=== PATIENT | male | born 1965 | race African-American/Black ===

== ENCOUNTER 2017-02-09 22:52 | Emergency (ER) | payer MEDICAID ==
[~2017-02-09] VITALS: Ht 175.3 cm; Wt 63.5 kg
[2017-02-09] MEDS ORDERED: BENAZEPRIL HCL20 MG ORAL (23:04)
[2017-02-09] MEDS ORDERED: FERROUS SULFAT325 MG ORAL (23:04)
[2017-02-09] MEDS ORDERED: AMLODIPINE BESYL5 MG ORAL (23:04)
[2017-02-09] MEDS ORDERED: ALBUTEROL2.5 MG/3 M INH (23:04)
[2017-02-09] MEDS ORDERED: ATENOLOL25 MG ORAL (23:04)
[2017-02-09] MEDS ORDERED: ASPIRIN81 MG ORAL (23:04)
[2017-02-09] MEDS ORDERED: Mylanta II UD 30ml ORAL ONE (23:15)
[2017-02-09] MEDS ORDERED: Lidocaine 2% Visc 15ml soln ORAL ONE (23:15)
[2017-02-09 23:25] VITALS: BP 147/73
[2017-02-10 00:24] LABS: APPEARANCE,URINE CLEAR; KETONES,URINE NEGATIVE (NEGATIVE); LEUKOCYTE ESTERASE ,URINE NEGATIVE (NEGATIVE); NITRITE,URINE NEGATIVE (NEGATIVE); PH,URINE 7 (4.5-8.0); PROTEIN,URINE NEGATIVE (NEGATIVE); UROBILINOGEN,URINE NORMAL MG/DL (0.0-1.0)
[2017-02-10 01:00] VITALS: BP 123/71
[2017-02-10 01:03] LABS: BASOPHILS % (AUTO) 1.6 % (0.0-2.0); EOSINOPHILS % (AUTO) 1.9 % (0.0-3.0); MEAN CORPUSCULAR HGB CONC 31.1 G/DL (32.0-36.0); MEAN CORPUSCULAR VOLUME 87 FL (80-99); MEAN PLATELET VOLUME 6.3 FL (6.5-10.1); MONOCYTES % (AUTO) 10.4 % (1.0-10.0); NEUTROPHILS % (AUTO) 39.1 % (45.0-75.0); PLATELET COUNT 183 K/UL (150-450); RED BLOOD COUNT 4.01 M/UL (4.70-6.10); RED CELL DISTRIBUTION WIDTH 13.2 % (11.6-14.8); WHITE BLOOD COUNT 4.8 K/UL (4.8-10.8)
[2017-02-10 01:17] LABS: PROTHROMBIN TIME 10.2 SEC (9.30-11.50)
[2017-02-10 01:23] LABS: ANION GAP 3 mmol/L (5-15); CARBON DIOXIDE 32 MMOL/L (21-32); CHLORIDE 105 MMOL/L (98-107); CREATININE 1.6 MG/DL (0.55-1.30); POTASSIUM 4.1 MMOL/L (3.5-5.1); SODIUM 140 MMOL/L (136-145)
[2017-02-10 01:28] LABS: ALANINE AMINOTRANSFERASE 27 U/L (12-78); ASPARTATE AMINO TRANSFERASE 23 U/L (15-37); TOTAL PROTEIN 6.9 G/DL (6.4-8.2)
--- NOTE | 2017-02-10 03:22 | Emergency Room Report ---
History of Present Illness General Chief Complaint: Chest Pain Source: Patient Present Illness HPI Patient presents with 3 days or intermittent chest pain. Substernal and radiating to L arm. Worse when laying down and eating. Not exertional. Concerned about his heart. States he has never had stress test or cath. Not take anything for the pain. Not taking aspirin. No fevers, cough, sore throat. No vomiting, hematemesis, melena or blood in stool. Denies alcohol. Pain rated at 4/10 when worst and now 2/10, substernal and radiating to L arm. No smoke, family history, diabetes. + HTN No joint pain, headache, stress, dysuria, edema. Allergies: Coded Allergies: No Known Allergies (Unverified , 02/09/17) Patient History Social History: Denies: smoking Social History Narrative not working Reviewed Nursing Documentation: PMH: Agreed, PSxH: Agreed Nursing Documentation-PMH Hx Hypertension: Yes Hx Asthma: Yes Review of Systems All Other Systems: negative except mentioned in HPI Physical Exam Vital Signs Date Time Temp Pulse Resp B/P (MAP) Pulse Ox O2 Delivery O2 Flow Rate FiO2 02/09/17 22:59 97.7 53 14 142/81 98 Room Air Sp02 EP Interpretation: reviewed, normal General Appearance: well appearing, no apparent distress, GCS 15 Head: normocephalic Eyes: bilateral eye normal inspection, bilateral eye PERRL ENT: moist mucus membranes Neck: supple Respiratory: chest non-tender, lungs clear, normal breath sounds Cardiovascular #1: regular rate, rhythm Cardiovascular #2: 2+ radial (R) Gastrointestinal: normal inspection, normal bowel sounds, non tender, no mass, non-distended Musculoskeletal: back normal, gait/station normal, normal range of motion Neurologic: alert, oriented x3, grossly normal Psychiatric: mood/affect normal Skin: normal inspection, warm/dry Medical Decision Making Diagnostic Impression: Primary Impression: Chest pain ER Course Patient presents with non-exertional chest pain. DDx: ACS, unstable angina, GERD, esophagitis, reflux, gastritis amongst others. Evaluation with EKG, CXR and labs. Treatment with pepcid, tylenol, mylanta, viscous lido. EKG without injury, CXR, normal, labs unremarkable except for some renal insufficiency. Improved with treatment. The patient is stable for outpatient observation and treatment. Laboratory Tests Test 02/09/17 23:30 02/10/17 00:30 Urine Color Pale yellow Urine Appearance Clear Urine pH 7 (4.5-8.0) Urine Specific [place] 1.010 (1.005-1.035) Urine Protein Negative (NEGATIVE) Urine Glucose (UA) Negative (NEGATIVE) Urine Ketones Negative (NEGATIVE) Urine Occult Blood Negative (NEGATIVE) Urine Nitrite Negative (NEGATIVE) Urine Bilirubin Negative (NEGATIVE) Urine Urobilinogen Normal MG/DL (0.0-1.0) Urine Leukocyte Esterase Negative (NEGATIVE) Urine Opiates Screen Negative (NEGATIVE) Urine Barbiturates Screen Negative (NEGATIVE) Phencyclidine (PCP) Screen Negative (NEGATIVE) Urine Amphetamines Screen Negative (NEGATIVE) Urine Benzodiazepines Screen Negative (NEGATIVE) Urine Cocaine Screen Negative (NEGATIVE) Urine Marijuana (THC) Screen Negative (NEGATIVE) White Blood Count 4.8 K/UL (4.8-10.8) Red Blood Count 4.01 M/UL (4.70-6.10) L Hemoglobin 10.9 G/DL (14.2-18.0) L Hematocrit 34.9 % (42.0-52.0) L Mean Corpuscular Volume 87 FL (80-99) Mean Corpuscular Hemoglobin 27.0 PG (27.0-31.0) Mean Corpuscular Hemoglobin Concent 31.1 G/DL (32.0-36.0) L Red Cell Distribution Width 13.2 % (11.6-14.8) Platelet Count 183 K/UL (150-450) Mean Platelet Volume 6.3 FL (6.5-10.1) L Neutrophils (%) (Auto) 39.1 % (45.0-75.0) L Lymphocytes (%) (Auto) 47.0 % (20.0-45.0) H Monocytes (%) (Auto) 10.4 % (1.0-10.0) H Eosinophils (%) (Auto) 1.9 % (0.0-3.0) Basophils (%) (Auto) 1.6 % (0.0-2.0) Prothrombin Time 10.2 SEC (9.30-11.50) Prothrombin Time INR 1.0 (0.9-1.1) PTT 24 SEC (23-33) Sodium Level 140 MMOL/L (136-145) Potassium Level 4.1 MMOL/L (3.5-5.1) Chloride Level 105 MMOL/L (98-107) Carbon Dioxide Level 32 MMOL/L (21-32) Anion Gap 3 mmol/L (5-15) L Blood Urea Nitrogen 32 mg/dL (7-18) H Creatinine 1.6 MG/DL (0.55-1.30) H Estimate Glomerular Filtration Rate 55.0 mL/min (>60) Glucose Level 94 MG/DL (74-106) Calcium Level 8.0 MG/DL (8.5-10.1) L Total Bilirubin 0.4 MG/DL (0.2-1.0) Aspartate Amino Transferase (AST) 23 U/L (15-37) Alanine Aminotransferase (ALT) 27 U/L (12-78) Alkaline Phosphatase 57 U/L (46-116) Total Creatine Kinase 419 U/L (26-308) H Troponin I 0.003 ng/mL (0.000-0.056) Pro-B-Type Natriuretic Peptide 71 pg/mL (0-125) Total Protein 6.9 G/DL (6.4-8.2) Albumin 3.4 G/DL (3.4-5.0) Globulin 3.5 g/dL Albumin/Globulin Ratio 1.0 (1.0-2.7) EKG Diagnostic Results Rate: bradycardiac Rhythm: NSR ST Segments: no acute changes Rhythm Strip Diag. Results EP Interpretation: yes Rhythm: no PVC's, no ectopy, other - Bradycardia Chest X-Ray Diagnostic Results Chest X-Ray Diagnostic Results : Chest X-Ray Ordered: Yes # of Views/Limited/Complete: 1 View Indication: Chest Pain EP Interpretation: Yes Interpretation: no consolidation, no effusion, no pneumothorax, no acute cardiopulmonary disease Impression: No acute disease Electronically Signed by: Electronically signed by Madan Nava MD Last Vital Signs Date Time Temp Pulse Resp B/P (MAP) Pulse Ox O2 Delivery O2 Flow Rate FiO2 02/10/17 03:29 58 121/70 Room Air 58 02/10/17 03:26 98.4 16 100 Status: improved Disposition: HOME, SELF-CARE Condition: Improved Scripts Acetaminophen (Tylenol) 325 Mg Tablet 650 MG ORAL Q6H Y for Prn Pain/Headache/Temp > 101, #20 TAB 0 Refills Prov: Madan Nava M.D. 02/10/17 Famotidine (PEPCID) 20 Mg Tablet 20 MG ORAL DAILY, #30 TAB 0 Refills Prov: Madan Nava M.D. 02/10/17 Referrals: [facility],REFERRING (PCP) Madan Nava M.D. Feb 10, 2017 03:21
[2017-02-10] MEDS ORDERED: TYLENOL325 MG ORAL (03:24)
[2017-02-10] MEDS ORDERED: PEPCID20 MG ORAL (03:24)
[2017-02-10 03:26] VITALS: BP 121/70
[2017-02-10 03:29] VITALS: BP 121/70
--- NOTE | 2017-02-10 12:15 | Diagnostic Imaging Report ---
Indication: Dyspnea Comparison: None A single view chest radiograph was obtained. Findings: Cardiomediastinal appearance is within normal limits for age. Pulmonary vascularity is appropriate. The diaphragmatic contour is smooth and costophrenic angles are sharp. No pleural effusions are identified. The bones are unremarkable. Impression: No acute findings
--- NOTE | 2017-02-24 00:23 | Cardiology Report ---
APPROVED REPORT EKG Measurement Heart [id number] ME [id number] Sinus bradycardia Otherwise normal ECG
== END 2017-02-10 03:29 | disposition home or self-care (01) ==
LOC: EMR 23:15
DX: R07.89 Other chest pain (principal); I10 Essential (primary) hypertension; J45.909 Unspecified asthma, uncomplicated
CPT/HCPCS: 36415; 71010; 80053; 80307; 81003; 82550; 83880; 84484; 85025; 85610; 85730; 93005; 96374; 99284; S0028

== ENCOUNTER 2018-08-12 18:16 | Emergency (ER) | payer MEDICAID ==
[~2018-08-12] VITALS: Ht 175.3 cm; Wt 63.5 kg
[~2018-08-12 18:16] MED LIST: ALBUTEROL2.5 MG/3 M INH; AMLODIPINE BESYL5 MG ORAL; ASPIRIN81 MG ORAL; ATENOLOL25 MG ORAL; BENAZEPRIL HCL20 MG ORAL; FERROUS SULFAT325 MG ORAL; PEPCID20 MG ORAL; TYLENOL325 MG ORAL
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
--- NOTE | 2018-08-12 18:45 | NUR ---
ED Nurse Note:blood was sent to labs, IV fluids started and pt. placed on monitoring and evaluation advisor
[2018-08-12 18:54] LABS: BASOPHILS % (AUTO) 1.8 % (0.0-2.0); EOSINOPHILS % (AUTO) 1.5 % (0.0-3.0); HEMATOCRIT 35.3 % (42.0-52.0); HEMOGLOBIN 11.5 G/DL (14.2-18.0); LYMPHOCYTES % (AUTO) 47.9 % (20.0-45.0); MEAN CORPUSCULAR VOLUME 86 FL (80-99); MONOCYTES % (AUTO) 10.7 % (1.0-10.0); NEUTROPHILS % (AUTO) 38.1 % (45.0-75.0); PLATELET COUNT 166 K/UL (150-450); RED BLOOD COUNT 4.08 M/UL (4.70-6.10); RED CELL DISTRIBUTION WIDTH 13.1 % (11.6-14.8); WHITE BLOOD COUNT 3.9 K/UL (4.8-10.8)
[2018-08-12 19:07] LABS: ANION GAP 9 mmol/L (5-15); BLOOD UREA NITROGEN 21 mg/dL (7-18); CALCIUM 8.7 MG/DL (8.5-10.1); CARBON DIOXIDE 27 MMOL/L (21-32); CHLORIDE 104 MMOL/L (98-107); CREATININE 1.4 MG/DL (0.55-1.30); POTASSIUM 3.3 MMOL/L (3.5-5.1); SODIUM 140 MMOL/L (136-145)
--- NOTE | 2018-08-12 19:12 | NUR ---
HAND-OFF: Report given to Lety HANNA.
--- NOTE | 2018-08-12 19:20 | NUR ---
ED Nurse Note: Pt endorsed from JACQUES Schwarz.
[2018-08-12 19:23] LABS: ALANINE AMINOTRANSFERASE 20 U/L (12-78); ALBUMIN 3.5 G/DL (3.4-5.0); ALBUMIN/GLOBULIN RATIO 1.2 (1.0-2.7); ALKALINE PHOSPHATASE 47 U/L (46-116); ASPARTATE AMINO TRANSFERASE 15 U/L (15-37); BILIRUBIN,TOTAL 0.5 MG/DL (0.2-1.0); CKMB 0.6 NG/ML (0.0-3.6); CREATINE KINASE 168 U/L (26-308)
[2018-08-12] MEDS ORDERED: Meclizine 25mg tab ORAL ONE (19:30)
[2018-08-12] MEDS ORDERED: Metoclopramide 10mg/2ml Inj IVP ONE (19:30)
--- NOTE | 2018-08-12 19:30 | NUR ---
ED Nurse Note: faxed lapse of consciousness to [facility] .
--- NOTE | 2018-08-12 19:35 | NUR ---
ED Nurse Note: Pt to CT
[2018-08-12 19:45] VITALS: BP 128/56
--- NOTE | 2018-08-12 19:45 | NUR ---
ED Nurse Note: Pt back from CT
[2018-08-12 20:36] LABS: APPEARANCE,URINE CLEAR; BILIRUBIN, URINE NEGATIVE (NEGATIVE); COLOR,URINE PALE YELLOW; GLUCOSE, URINE (UA) NEGATIVE (NEGATIVE); KETONES,URINE NEGATIVE (NEGATIVE); LEUKOCYTE ESTERASE ,URINE NEGATIVE (NEGATIVE); NITRITE,URINE NEGATIVE (NEGATIVE); PH,URINE 7 (4.5-8.0); PROTEIN,URINE 2+ (NEGATIVE); UROBILINOGEN,URINE NORMAL MG/DL (0.0-1.0)
[2018-08-12] MEDS ORDERED: VERTICALM25 MG ORAL (20:54)
[2018-08-12 21:00] VITALS: BP 124/56
--- NOTE | 2018-08-12 21:00 | NUR ---
ER DISCHARGE NOTE: Patient is cleared to be discharged per ERMD, pt is aox4, on room air, with stable vital signs. pt was given dc and prescription instructions, pt was able to verbalize understanding, pt id band and iv site removed without complications. pt is able to ambulate with steady gait. pt took all belongings. Pt was offered the option to be admitted for observation per Dr White, pt refused, instructed to follow up with primary MD. [facility] formed faxed out
--- NOTE | 2018-08-13 08:04 | Diagnostic Imaging Report ---
. Indication: Chest pain Technique: XRAY Chest 1v Comparison: 02/09/2017 Findings: Heart size and mediastinal contours are within normal limits for AP technique and stable compared to the prior exam. There is no focal airspace consolidation, pneumothorax or pleural effusion. There is mild scoliosis. Osseous structures demonstrate no acute abnormality. Impression: No radiographic evidence of acute cardiopulmonary disease.
--- NOTE | 2018-08-13 08:48 | Diagnostic Imaging Report ---
Indication: Syncope Technique: Continuous helical CT scanning of the head was performed utilizing automated exposure control without intravenous contrast material. Axial and coronal reconstructions were obtained. Comparison: None CT dose: Total DLP 1586.09 mGycm; CTDI vol 70.38 mGy Findings: There is no acute intracranial hemorrhage, mass effect or cortical edema. There is no shift of the midline structures. Tang-white differentiation appears grossly preserved. The ventricles, cisterns and sulci are within normal limits for age. Visualized mastoid air cells and paranasal sinuses are unremarkable. No focal lesions of the bony calvarium or soft tissues of the scalp are seen. Impression: No evidence of acute intracranial hemorrhage, mass effect or cortical edema. MRI may be obtained for more sensitive evaluation as clinically indicated. The CT scanner at [facility] is accredited by the [employer] and the scans are performed using protocols designed to limit radiation exposure to as low as reasonably achievable to attain images of sufficient resolution adequate for diagnostic evaluation.
--- NOTE | 2018-08-13 11:39 | Cardiology Report ---
APPROVED REPORT EKG Measurement Heart [id number] Sinus bradycardia Otherwise normal ECG
== END 2018-08-12 21:00 | disposition home or self-care (01) ==
LOC: EDBD 18:16 → EMR 18:47
DX: R55 Syncope and collapse (principal); R42 Dizziness and giddiness; I10 Essential (primary) hypertension; R00.1 Bradycardia, unspecified; M41.9 Scoliosis, unspecified; R07.9 Chest pain, unspecified
CPT/HCPCS: 36415; 70450; 71045; 80053; 80307; 81003; 82550; 82553; 83690; 83880; 84484; 85025; 93005; 96374; 99284; J2765; J7040